=== PATIENT | female | born 1980 | race Caucasian/White ===

== ENCOUNTER 2020-09-24 16:00 | Outpatient (RCR) | payer OTHER, SELFPAY ==
[2020-09-16 11:07] VITALS: BP 141/88; PULSE 113
--- NOTE | 2020-09-16 12:32 | MHC.PT.EP ---
[facility] [place] Office [place] Office [place] Office [address] Pacheco Pardo [address] [phone] F: [phone] F: [phone] F: [phone] F: [phone] Physical Therapy Plan of Care Date of Evaluation: 09/16/20 Date of Surgery: NA Diagnosis: Benign paroxysmal vertigo, bilateral vestibular disorder Assessment: 39 year female referred for Benign paroxysmal vertigo, bilateral vestibular disorder . She reports of having symptoms of vertigo for the last 23 years. She reports of having symptoms of room spinning dizziness every time she rolls, sit to supine. looking up and down and bending over. Her symptoms last for a few seconds. She has occasional nausea as well. Examination reveals smooth pursuit, saccades- WNL, VBI - negative and positive for PC BPPV in R and [facility]. Balance was not tested today. Pt was very anxious and nervous therefore she was assessed directly for BPPV. Pt lives with her who has been helping her with ADLS requiring her to bend- wearing her shoes, socks and pants. 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 She is a good candidate for PT based on age, goals, physical impairments and functional limitations. She would benefit from PT for vestibular rehab. Frequency and Duration: The patient will be seen 2/week for 5 weeks. Short Term Goals: 1. Patient to be educated on symptoms and indications to return to therapy when needed in 4 weeks. 2. Pt will be negative for nystagmus or reports of vertigo in all diagnostic positions bilaterally to resolution of BPPV in 4 weeks. Reporting Process Consultant Goals: 1. Patient to be able to functionally move in all planes and directions without provocation of dizziness to show return to PLOF in 6 weeks. Treatment Plan: Modalities to reduce pain, spasms and effusion. Manual therapy to restore motion and function. Therapeutic exercise to improve strength and flexibility. Neuromuscular re-education for posture and balance. Therapeutic activities to return to functional activities of daily living. Electronically signed by: Tonya Holguin DPT Please sign and return to therapist. Thank you for your referral.
--- NOTE | 2020-10-29 08:21 | MHC.PT.DC ---
[facility] [place] Office [place] Office [place] Office [address] Pacheco Pardo [address] [phone] F: [phone] F: [phone] F: [phone] F: [phone] Physical Therapy Discharge Report Diagnosis: Benign paroxysmal vertigo, bilateral vestibular disorder Date of Surgery: NA Date of Evaluation: 09/16/20 Date of Discharge: 10/29/20 Treatments to Date: 2 Cancellations to Date: 0 No Shows to Date: 0 Discharge Status: Achieved Goals Improved Function Discharge Summary: Pt was negative for BPPV on 09/24/20. Her balance was WNL as well. Pt was advised to return to therapy if her symptoms returned within a month. Pt however has been asymptomatic for a month. She was therefore d/c from therapy Electronically signed by: Tonya Holguin DPT Please sign and return to therapist. Thank you for your referral.
== END 2020-10-29 08:22 | disposition other institution (70) ==
LOC: HO.PT 16:00
PROVIDERS: Visit Provider Physician Assistant
DX: H81.13 Benign paroxysmal vertigo, bilateral (principal)
CPT/HCPCS: 95992; 97112; 97161

== ENCOUNTER 2021-02-02 14:26 | Outpatient (REF) | payer OTHER, SELFPAY ==
--- NOTE | ~2021-02-02 | XR_ITS ---
EXAMINATION: XR ABDOMEN KUB CLINICAL INDICATION: Abdominal pain COMPARISON: None TECHNIQUE: AP view of the abdomen. FINDINGS: There are no dilated loops of bowel to suggest obstruction. There is no evidence of free air. There is an IUD in the pelvis. There is a right pelvic calcification probably representing a calcified phlebolith. Bony structures are unremarkable. XR/XR KUB IMPRESSION: No acute findings.
== END 2021-02-02 14:27 | disposition home or self-care (01) ==
LOC: HO.XRAY 14:26
PROVIDERS: PCP Physician Assistant; Visit Provider Physician Assistant
DX: R10.9 Unspecified abdominal pain (principal); Z97.5 Presence of (intrauterine) contraceptive device
CPT/HCPCS: 74018

== ENCOUNTER 2021-02-12 11:08 | Outpatient (REF) | payer OTHER, SELFPAY ==
--- NOTE | ~2021-02-12 | US_ITS ---
EXAMINATION: US RETROPERITONEAL LIMITED (RENAL ONLY) CLINICAL INFORMATION: Unspecified abdominal pain. COMPARISON: KUB 02/02/2021 TECHNIQUE: Real-time imaging of the kidneys. FINDINGS: RIGHT KIDNEY: 11.7 x 5.0 x 4.5 cm (SAG x AP x TRV). The kidney is normal in size, contour, and echogenicity. Renal cortical thickness is normal. No calculi or focal parenchymal lesions. No hydronephrosis. LEFT KIDNEY: 11.6 x 6.0 x 5.3 cm (SAG x AP x TRV). The kidney is normal in size, contour, and echogenicity. Renal cortical thickness is normal. There is a 9 x 7 x 10 mm echogenic lesion in the lower pole questionable for an angiomyolipoma. No renal calculi or hydronephrosis. US/US renal LT IMPRESSION: 9 x 7 x 10 mm echogenic lesion in the lower pole of the left kidney questionable for an angiomyolipoma. Follow-up CT or MRI the kidneys recommended..
== END 2021-02-12 11:09 | disposition home or self-care (01) ==
LOC: HO.US 11:08
PROVIDERS: Visit Provider Physician Assistant
DX: R10.9 Unspecified abdominal pain (principal)
CPT/HCPCS: 76775

== ENCOUNTER 2021-04-08 09:43 | Outpatient (REF) | payer OTHER, SELFPAY ==
--- NOTE | ~2021-04-08 | CT_ITS ---
EXAMINATION: CT ABDOMEN WITHOUT CONTRAST CLINICAL INFORMATION: Follow-up left renal lesion seen on ultrasound COMPARISON: Renal ultrasound January 2021 TECHNIQUE: Contiguous axial thin section helical images of the abdomen were performed without contrast. The data set was reformatted in the coronal and sagittal planes and reviewed on an independent workstation. This CT examination was performed using dose optimization techniques as appropriate, variously including the following: *Automated exposure control *Adjustment of mA and/or kV according to patient size (this includes techniques or standardized protocols for targeted exams where dose is matched to indication/reason for exam; i.e. extremities or head) *Use of iterative reconstruction technique DLP: 338 mGy-cm FINDINGS: LUNG BASES: Unremarkable LIVER, GALLBLADDER, BILIARY TREE: Unremarkable PANCREAS: Unremarkable SPLEEN: Unremarkable ADRENAL GLANDS AND KIDNEYS: The adrenal glands are normal appearing. There is a 3 x 6 mm low-attenuation lesion in the anterior mid to lower pole of the left kidney. Hounsfield units are negative suggestive of a fatty lesion. This likely represents a benign angiomyolipoma. The right kidney is unremarkable. BOWEL LOOPS: Unremarkable LYMPH NODES: Unremarkable VASCULAR: Unremarkable. BONES: Unremarkable CT/CT abdomen wo con IMPRESSION: 3 x 6 mm fatty lesion in the left kidney probably representing a benign angiomyolipoma. This corresponds to abnormality seen on ultrasound.
== END 2021-04-08 09:44 | disposition home or self-care (01) ==
LOC: HO.CT 09:43
PROVIDERS: PCP Physician Assistant; Visit Provider Physician Assistant
DX: N28.89 Other specified disorders of kidney and ureter (principal); Z80.51 Family history of malignant neoplasm of kidney
CPT/HCPCS: 74150

== ENCOUNTER → 2021-05-21 12:54 | Outpatient (BNVA) | payer OTHER, SELFPAY | PROVIDERS: PCP Physician Assistant; Visit Provider Urology | DX: D17.71 Benign lipomatous neoplasm of kidney (principal) | CPT/HCPCS: 99202 ==

== ENCOUNTER 2022-01-20 09:41 | Outpatient (REF) | payer OTHER, SELFPAY ==
--- NOTE | ~2022-01-20 | MM_ITS ---
EXAMINATION: MM SCREENING DIGITAL BREAST TOMOSYNTHESIS, BILATERAL CLINICAL INFORMATION: Screening. Asymptomatic. The lifetime risk of breast cancer based on the Tyrer-Cuzick Model is 15.9%. COMPARISON: Mammography: March 30, 2018 TECHNIQUE: Digital breast tomosynthesis is performed in both the craniocaudal and mediolateral oblique views along with computer-aided detection (CAD). Synthesized 2D images are generated from the tomosynthesis. FINDINGS: The breasts are heterogeneously dense, which may obscure small masses (ACR BI-RADS breast composition Category c). There are no significant masses, abnormal calcifications, or other abnormalities. MM/MM tomosynthesis screening BI IMPRESSION: There are no significant changes from prior study. ASSESSMENT: BI-RADS 1: Negative RECOMMENDATION: Routine annual mammography screening. This patient's information was entered into a reminder system with a target due date for their next mammogram.
== END 2022-01-20 09:42 | disposition home or self-care (01) ==
LOC: HO.MAMMO 09:41
PROVIDERS: PCP Physician Assistant; Visit Provider Physician Assistant
DX: Z12.31 Encounter for screening mammogram for malignant neoplasm of breast (principal)
CPT/HCPCS: 77063; 77067

== ENCOUNTER 2022-04-16 07:53 | Outpatient (REF) | payer OTHER, SELFPAY ==
--- NOTE | ~2022-04-16 | US_ITS ---
EXAMINATION: US RETROPERITONEAL LIMITED (RENAL ONLY) CLINICAL INFORMATION: Benign lipomatous neoplasm of kidney. COMPARISON: CT abdomen 04/08/2021. Renal ultrasound 02/12/2021. X-ray KUB 02/02/2021. TECHNIQUE: Real-time imaging of the kidneys. FINDINGS: RIGHT KIDNEY: 11.3 x 5.8 x 5.8 cm (SAG x AP x TRV). The kidney is normal in size, contour, and echogenicity. Renal cortical thickness is normal. No calculi or focal parenchymal lesions. No hydronephrosis. LEFT KIDNEY: 12.0 x 5.5 x 5.5 cm (SAG x AP x TRV). The kidney is normal in size, contour, and echogenicity. Renal cortical thickness is normal. No calculi or focal parenchymal lesions. No hydronephrosis. At the lower pole, a 9 x 8 x 7 mm hyperechoic, circumscribed lesion is redemonstrated, consistent with a previously demonstrated benign angiomyolipoma. US/US renal BI IMPRESSION: A previously described small left renal benign angiomyolipoma is redemonstrated, with current dimensions as detailed above..
== END 2022-04-16 07:54 | disposition home or self-care (01) ==
LOC: HO.US 07:53
PROVIDERS: Visit Provider Urology
DX: D17.71 Benign lipomatous neoplasm of kidney (principal)
CPT/HCPCS: 76775

== ENCOUNTER 2022-05-21 10:25 | Outpatient (AMB) | payer OTHER, SELFPAY ==
--- NOTE | 2022-05-20 11:40 | MHC.OFFVIS ---
Intake Intake Visit Reasons: 1Y US (SET) Intake Note: Patient is present for ultrasound follow up Reports no medication changes Accompanied by: Self / Same As Patient Allergies lisinopril Adverse Reaction (Mild, Verified 05/25/23 11:01) Cough HPI HPI Comments History of Present Illness Details Clementine is a pleasant female. She is seen for the following urologic conditions - angiomyolipoma Follow-up imaging stable 12 month repeat Angiomyolipoma Discussed natural history Imaging - 04/22 CT scan 6 mm left angiomyolipoma Plan for surveillance imaging in 12 months [facility] Medical History Anemia DMII (diabetes mellitus, type 2) Irritable bowel syndrome Obesity (BMI 30-39.9) Vitamin D deficiency Surgical History No pertinent past surgical history Family History Father No problems noted. 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 Cognitive needs: No Hearing needs: No Vision needs: Yes (Pt wears glasses) Review of Systems Const Denies chills and Denies fever(s) Card Reports no additional complaints and Denies syncope Resp Denies cough GI Denies abdominal pain and Denies heartburn Reports as per HPI and Denies change in libido Neuro Denies syncope Psych Denies change in libido Endo Denies change in libido Physical Exam Const General: cooperative, healthy appearing, comfortable and no acute distress Orientation/consciousness: patient oriented x3 HEENT Face and sinus: Yes normal facial exam Mouth: moist mucous membranes Neck Neck: Yes normal visual inspection, Yes full ROM and Yes trachea midline Chest Chest palpation & inspection: normal inspection of the chest Resp Effort & Inspection: normal respiratory effort, able to speak in complete sentences and no respiratory distress GI Inspection: Yes normal to inspection Back/Spine/Pelvis Cervical Spine: normal cervical lordosis Thoracic/Lumbar Spine: thoracic and lumbar spine normal to inspection Skin General skin exam: no rashes or lesions noted Neuro General: patient oriented x3, gait normal, tone normal and moves all extremities Extrem General: Yes normal to inspection and Yes capillary refill normal Assessment & Plan Assessment & Plan (1) Angiomyolipoma of kidney: Code(s): D1. - Benign lipomatous neoplasm of kidney Plan 12 month follow-up imaging Orders: Orders US renal BI 1 Year - Benign lipomatous neoplasm of kidney Patient Instructions: Imaging studies, laboratory and physical exam results were discussed and reviewed in detail. No major barriers to patient understanding were identified. An opportunity to ask questions regarding the treatment plan was provided. All questions were answered. The patient expressed understanding and agreement with the above treatment plan. The patient is aware they should contact our office by phone for worsening of their current condition or the appearance of new urologic symptoms. Compliance is encouraged with any medications and followup testing that is ordered. It is a privilege to participate in the urologic care of your patient. If you have any questions or concerns regarding treatment for the above conditions, or other urologic issues, please do not hesitate to contact me. The office telephone contact is [phone]. This note is constructed using voice recognition software. While every effort has been made to ensure accuracy education research analyst errors may have been included. Yours sincerely, Dr Marino Sexton MD, [facility] - Urology Providers of Expert, Compassionate Care for the Genitourinary System Coding Level of Care Code Est Pt Level 4 (15775) Diagnoses Angiomyolipoma of kidney D1
== END 2022-05-21 12:09 | disposition home or self-care (01) ==
LOC: HO.HUSH 10:25
PROVIDERS: PCP Physician Assistant; Visit Provider Urology
DX: D17.71 Benign lipomatous neoplasm of kidney (principal)
CPT/HCPCS: 99499

== ENCOUNTER 2022-09-20 09:51 | Outpatient (REF) | payer OTHER, SELFPAY ==
[2022-09-20 10:31] LABS: Hematocrit 42.1 % (37.0-47.0); Hemoglobin 13.4 g/dl (12.0-16.0); Mean Corpuscular HGB Conc 31.8 g/dl (31.0-35.0); Mean Corpuscular Hemoglobin 30.7 pg (27.0-33.0); Mean Corpuscular Volume 96.3 fL (80.0-98.0); Platelet Count 313 X10*3/uL (160-400); Red Blood Count 4.37 X10*6/uL (4.20-5.50); Red Cell Distribution Width 13.1 % (11.0-16.0); White Blood Count 6.3 X10*3/uL (4.8-10.8)
[2022-09-20 10:37] LABS: Estimated Average Glucose 146 mg/dL; Hemoglobin A1c % 6.7 %
[2022-09-20 11:17] LABS: Alanine Aminotransferase 19 U/L (0-31); Albumin Level 4.2 g/dL (3.5-5.0); Alkaline Phosphatase 44 U/L (39-117); Anion Gap 12 (12-20); Aspartate Amino Transferase 17 U/L (5-31); Bilirubin Total 0.4 mg/dL (0.0-1.0); Blood Urea Nitrogen 11 mg/dL (9-16); Calcium 9.2 mg/dL (8.4-10.2); Carbon Dioxide 28 mmol/L (22-29); Chloride 104 mmol/L (96-108); Cholesterol 185 mg/dL; Estimated Glomerular Filt Rate > 60; Glucose Fasting 121 mg/dL (60-99); HDL Cholesterol 53 mg/dL; LDL Cholesterol Calculated 111 mg/dl; Potassium 4.2 mmol/L (3.3-5.1); Prostate Specific Antigen Scr < 0.10 ng/mL; Sodium 140 mmol/L (135-145); TSH reflex Free T4 1.54 uIU/mL (0.32-4.0); Triglycerides 108 mg/dL
== END 2022-09-20 09:52 | disposition home or self-care (01) ==
LOC: HO.LAB 09:51
PROVIDERS: PCP Physician Assistant; Visit Provider Physician Assistant
DX: Z12.5 Encounter for screening for malignant neoplasm of prostate (principal); E11.65 Type 2 diabetes mellitus with hyperglycemia; I10 Essential (primary) hypertension
CPT/HCPCS: 36415; 80053; 80061; 83036; 84153; 84443; 85027

== ENCOUNTER 2023-02-18 11:29 | Outpatient (REF) | payer OTHER, SELFPAY ==
--- NOTE | ~2023-02-18 | MM_ITS ---
EXAMINATION: MM SCREENING DIGITAL BREAST TOMOSYNTHESIS, BILATERAL CLINICAL INFORMATION: Screening. Asymptomatic. The lifetime risk of breast cancer based on the Tyrer-Cuzick Model is 17%. COMPARISON: Mammography: 01/20/2022; outside exam 03/30/2018 ([facility]) TECHNIQUE: Digital breast tomosynthesis is performed in both the craniocaudal and mediolateral oblique views along with computer-aided detection (CAD). Synthesized 2D images are generated from the tomosynthesis. FINDINGS: The breasts are heterogeneously dense, which may obscure small masses (ACR BI-RADS breast composition Category c). Breast tissue composition borders on average fibroglandular. There are scattered minor asymmetries similar to prior studies. No developing density or architectural abnormality. There are no significant masses, abnormal calcifications, or other abnormalities. The axilla and skin contours are unremarkable. MM/MM tomosynthesis screening BI IMPRESSION: No mammographic evidence of malignancy. ASSESSMENT: BI-RADS 2: Benign RECOMMENDATION: Routine annual mammography screening. This patient's information was entered into a reminder system with a target due date for their next mammogram.
== END 2023-02-18 11:30 | disposition home or self-care (01) ==
LOC: HO.MAMMO 11:29
PROVIDERS: PCP Physician Assistant; Visit Provider Physician Assistant
DX: Z12.31 Encounter for screening mammogram for malignant neoplasm of breast (principal)
CPT/HCPCS: 77063; 77067

== ENCOUNTER 2023-05-09 10:57 | Outpatient (REF) | payer OTHER, SELFPAY ==
--- NOTE | ~2023-05-09 | US_ITS ---
EXAMINATION: US RETROPERITONEAL LIMITED (RENAL ONLY) CLINICAL INFORMATION: Benign lipomatous neoplasm of kidney. COMPARISON: Renal ultrasound 04/16/2022 and 02/12/2021. CT abdomen 04/08/2021. X-ray abdomen KUB 02/02/2021. TECHNIQUE: Real-time imaging of the kidneys. FINDINGS: RIGHT KIDNEY: 11.4 x 6.0 x 4.8 cm (SAG x AP x TRV). The kidney is normal in size, contour, and echogenicity. Renal cortical thickness is normal. No calculi or focal parenchymal lesions. No hydronephrosis. LEFT KIDNEY: 11.0 x 6.5 x 5.6 cm (SAG x AP x TRV). The kidney is normal in size, contour, and echogenicity. Renal cortical thickness is normal. No renal calculi or hydronephrosis. A 1 cm echogenic midpole renal lesion without internal vascularity which may reflect a small angiomyolipoma, previously 0.9 cm. US/US renal BI IMPRESSION: A 1 cm echogenic left renal lesion without internal vascularity which may reflect a small angiomyolipoma, previously 0.9 cm.
== END 2023-05-09 10:58 | disposition home or self-care (01) ==
LOC: HO.US 10:57
PROVIDERS: PCP Physician Assistant; Visit Provider Urology
DX: D17.71 Benign lipomatous neoplasm of kidney (principal)
CPT/HCPCS: 76775

== ENCOUNTER 2023-05-25 10:32 | Outpatient (AMB) | payer OTHER, SELFPAY ==
--- NOTE | 2023-05-25 11:00 | A.OFFVIS_ITS ---
Intake Intake Visit Reasons: 1Y US(set) Intake Note: Patient is present for Follow Up US Urology Med: None Antibiotic Allergy: None Blood Thinner: None Pharmacy: [facility] Allergies lisinopril Adverse Reaction (Mild, Verified 05/25/23 11:01) Cough HPI HPI Comments History of Present Illness Details Clementine is a pleasant female. She is seen for the following urologic conditions - angiomyolipoma Stable on imaging 2 year follow-up Angiomyolipoma Here for initial evaluation of incidentally detected renal mass Discussed natural history Imaging - 04/22 CT scan 6 mm left angiomyolipoma - 05/25 renal ultrasound small 9 mm left angiomyolipoma Plan for surveillance imaging in 24 months [facility] Medical History Anemia DMII (diabetes mellitus, type 2) Irritable bowel syndrome Obesity (BMI 30-39.9) Vitamin D deficiency Surgical History No pertinent past surgical history Family History Father No problems noted. 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 Cognitive needs: No Hearing needs: No Vision needs: Yes (Pt wears glasses) Review of Systems Const Denies chills and Denies fever(s) Card Reports no additional complaints and Denies syncope Resp Denies cough GI Denies abdominal pain and Denies heartburn Reports as per HPI and Denies change in libido Neuro Denies syncope Psych Denies change in libido Endo Denies change in libido Physical Exam Const General: cooperative, healthy appearing, comfortable and no acute distress Orientation/consciousness: patient oriented x3 HEENT Face and sinus: Yes normal facial exam Mouth: moist mucous membranes Neck Neck: Yes normal visual inspection, Yes full ROM and Yes trachea midline Chest Chest palpation & inspection: normal inspection of the chest Resp Effort & Inspection: normal respiratory effort, able to speak in complete sentences and no respiratory distress GI Inspection: Yes normal to inspection Back/Spine/Pelvis Cervical Spine: normal cervical lordosis Thoracic/Lumbar Spine: thoracic and lumbar spine normal to inspection Skin General skin exam: no rashes or lesions noted Neuro General: patient oriented x3, gait normal, tone normal and moves all extremities Extrem General: Yes normal to inspection and Yes capillary refill normal Assessment & Plan Assessment & Plan (1) Angiomyolipoma of kidney: Code(s): D17.71 - Benign lipomatous neoplasm of kidney Plan Two month follow-up Patient Instructions: Imaging studies, laboratory and physical exam results were discussed and reviewed in detail. No major barriers to patient understanding were identified. An opportunity to ask questions regarding the treatment plan was provided. All questions were answered. The patient expressed understanding and agreement with the above treatment plan. The patient is aware they should contact our office by phone for worsening of their current condition or the appearance of new urologic symptoms. Compliance is encouraged with any medications and followup testing that is ordered. It is a privilege to participate in the urologic care of your patient. If you have any questions or concerns regarding treatment for the above conditions, or other urologic issues, please do not hesitate to contact me. The office telephone contact is [phone]. This note is constructed using voice recognition software. While every effort has been made to ensure accuracy tester compressed gases errors may have been included. Yours sincerely, Dr Marino Sexton MD, [facility] - Urology Providers of Expert, Compassionate Care for the Genitourinary System Coding Level of Care Code Est Pt Level 4 (85638) Diagnoses Angiomyolipoma of kidney D17.71
== END 2023-05-25 11:24 | disposition home or self-care (01) ==
PROVIDERS: PCP Physician Assistant; Visit Provider Urology
DX: D17.71 Benign lipomatous neoplasm of kidney (principal)
CPT/HCPCS: 99214

== ENCOUNTER → 2023-05-25 10:32 | Outpatient (BNVA) | payer OTHER, SELFPAY | PROVIDERS: Visit Provider Urology | DX: D17.71 Benign lipomatous neoplasm of kidney (principal) | CPT/HCPCS: 99212 ==

== ENCOUNTER 2024-01-10 12:29 | Outpatient (REF) | payer OTHER, SELFPAY ==
[2024-01-10 12:57] LABS: Hematocrit 41.3 % (37.0-47.0); Hemoglobin 13.4 g/dl (12.0-16.0); Mean Corpuscular HGB Conc 32.4 g/dl (31.0-35.0); Mean Corpuscular Hemoglobin 31.5 pg (27.0-33.0); Mean Corpuscular Volume 97.2 fL (80.0-98.0); Mean Platelet Volume 11.2 fL (9.4-12.3); Platelet Count 329 X10*3/uL (160-400); Red Blood Count 4.25 X10*6/uL (4.20-5.50); Red Cell Distribution Width 12.8 % (11.0-16.0)
[2024-01-10 13:05] LABS: Estimated Average Glucose 169 mg/dL; Hemoglobin A1c % 7.5 % (<6.0)
[2024-01-10 13:29] LABS: Alanine Aminotransferase 21 U/L (0-31); Albumin Level 4.2 g/dL (3.5-5.0); Alkaline Phosphatase 39 U/L (39-117); Anion Gap 13 (12-20); Aspartate Amino Transferase 18 U/L (5-31); Bilirubin Total 0.4 mg/dL (0.0-1.0); Blood Urea Nitrogen 13 mg/dL (9-16); Calcium 9.5 mg/dL (8.4-10.2); Carbon Dioxide 27 mmol/L (22-29); Chloride 104 mmol/L (96-108); Cholesterol 149 mg/dL (<200); Estimated Glomerular Filt Rate > 60; Glucose Fasting 108 mg/dL (60-99); HDL Cholesterol 59 mg/dL (>40); LDL Cholesterol Calculated 71 mg/dL (<100); Potassium 4.3 mmol/L (3.3-5.1); Sodium 140 mmol/L (135-145); Total Protein 7.7 g/dL (6.5-8.0); Triglycerides 96 mg/dL (<150)
[2024-01-10 13:46] LABS: TSH reflex Free T4 0.91 uIU/mL (0.32-4.0)
== END 2024-01-10 12:30 | disposition home or self-care (01) ==
LOC: HO.LAB 12:29
PROVIDERS: PCP Physician Assistant; Visit Provider Physician Assistant
DX: E11.65 Type 2 diabetes mellitus with hyperglycemia (principal); I10 Essential (primary) hypertension
CPT/HCPCS: 36415; 80053; 80061; 83036; 84443; 85027

== ENCOUNTER 2024-01-10 13:56 | Outpatient (AMB) | payer OTHER, SELFPAY ==
--- NOTE | 2024-01-10 14:02 | A.OFFPC_ITS ---
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 Accompanied by: Self / Same As Patient Allergies lisinopril Adverse Reaction (Mild, Verified 01/10/24 14:30) Cough Medication List - Last Reconciled 01/10/24 by Irving Ham PA-C blood sugar diagnostic (FreeStyle Lite Strips) As directed empagliflozin (Jardiance) 25 mg PO DAILY lancets (FreeStyle Lancets) As directed latanoprost 0.005% 1 drp ophthalmic (eye) BEDTIME metformin 1,000 mg PO BID 90 days omeprazole 40 mg PO DAILY 90 days simvastatin 5 mg PO DAILY 90 days valsartan 80 mg PO DAILY 90 days Tobacco use date assessed: 01/10/24 Dental Screening Dental Screen Date: 01/10/24 Did you have a dental visit in the last 12 months?: Yes Did you have a dental problem in the last 6 months where you did not have access to dental care?: No Was dental information given to patient?: Patient has dentist HPI Diabetes follow-up HPI Details Patient is a 43 y/o F here today for a follow-up visit ? Patient has a past medical history significant for type 2 diabetes, GERD hypertension. .. DMII:? Continues on Jardiance and metformin. She reports she has been out of Jardiance over the last 2 months due to insurance coverage. She finally has insurance coverage for Jardiance and restarted the medication recently.? Patient's most recent A1c is 7.5 from 6.7..? She admits to not being to physically active due to her busy work. She is interested in starting GLP 1 for diabetic control and added benefit of weight loss. Will start Ozempic 0.25 .. Hypertension:? Blood pressures have been stable on current dose of amlodipine and valsartan. Otherwise denies any chest pain, shortness for breath or headaches. Laboratory Tests 09/20/22 01/10/24 10:02 12:42 Fasting Glucose 121 H 108 H Hemoglobin A1c % 6.7 7.5 H LDL Cholesterol, C alc 111 71 PFSH Medical History Vitamin D deficiency Obesity (BMI 30-39.9) Anemia Irritable bowel syndrome DMII (diabetes mellitus, type 2) Surgical History No pertinent past surgical history Family History Father No problems noted. 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 1. Little interest or pleasure in doing things: not at all 2. Feeling down, depressed, or hopeless: not at all 3. Trouble falling or staying asleep, or sleeping too much: not at all 4. Feeling tired or having little energy: not at all 5. Poor appetite or overeating: not at all 6. Feeling bad about yourself - or that you are a failure or have let yourself or your family down: not at all 7. Trouble concentrating on things, such as reading the newspaper or watching television: not at all 8. Moving or speaking so slowly that other people could have noticed. Or the opposite - being so fidgety or restless that you have been moving around a lot more than usual: not at all 9. Thoughts that you would be better off or of hurting yourself in some way: not at all Total score: 0 Depression Screening Interpretation: Negative Depression Screening Done: Yes 28289 - PHQ-9 Billing: Yes Source: Developed by Drs. Parmjit Mathis, Elba Joseph, Víctor Delgadillo and colleagues, with an educational mckenna from [employer]. Thrive Questionnaire Date Thrive assessed: 01/10/24 I am a: Patient What is your living situation today?: I have a steady place to live Within the past 12 months, did the food you bought not last and you didn't have the money to get more?: Never true Within the past 12 months, did you worry whether your food would run out before you got money to buy more?: Never true Do you have trouble paying for medicines?: No Do you have trouble getting transportation to medical appointments?: No Do you have trouble paying your heating and electricity bill?: No Do you have trouble taking care of your child, family member or friend?: No Do you have trouble with day-to-day activities such as bathing, preparing meals, shopping, managing finances, etc.?: No Are you currently unemployed and looking for a job?: No Are you interested in more education?: No Please select the resources that you would like help with: None Currently or been in a relationship where the following occur: no concerns reported THRIVE Score: 0 AUDIT C Alcohol Use Questionnaire (AUDIT-C) 1. How often do you have a drink containing alcohol?: Monthly or less 2. How many drinks containing alcohol do you have on a typical day when you are drinking?: 1 or 2 3. How often do you have six or more drinks on one occasion?: Never Total Score: 1 GRECIA-7 AMB Questionnaire GRECIA-7 Date GRECIA - 7 assessed: 01/10/24 Feeling nervous, anxious, or on edge: 0 = Not at all Not being able to stop or control worryin = Not at all Worrying too much about different things: 0 = Not at all Trouble relaxin = Not at all Being so restless that it is hard to sit still: 0 = Not at all Becoming easily annoyed or irritable: 0 = Not at all Feeling afraid as if something awful might happen: 0 = Not at all Total GRECIA-7 score (0-4 normal; 5-9 mild; 10-14 moderate; 15-21 severe): 0 Source: Developed by Drs. Parmjit Mathis, Elba Joseph, Víctor Delgadillo and colleagues, with an educational mckenna from [employer]. GRECIA-7 Assessment Billing GRECIA-7 Assessment Tool: GRECIA-7 Assessment 20669 Review of Systems Const Denies headache(s) Eyes Denies loss of vision ENT Denies vertigo, Denies dizziness, Denies headache(s) and Denies sore throat Card Denies chest pain, Denies leg edema and Denies lightheadedness Resp Denies cough, Denies hemoptysis and Denies wheezing GI Denies abdominal pain, Denies melena, Denies constipation, Denies diarrhea and Denies vomiting Denies urinary frequency, Denies dysuria and Denies urinary urgency Musc Denies arthralgias, Denies joint swelling, Denies numbness and Denies tingling Neuro Denies Abnormal speech present, Denies behavioral changes, Denies vertigo, Denies dizziness, Denies headache(s), Denies loss of vision, Denies memory loss, Denies numbness and Denies tingling Psych Denies anxiety, Denies behavioral changes, Denies depression, Denies memory loss and Denies panic attacks Jamey/Lymph Denies easy bleeding and Denies easy bruising Aller/Immun Denies wheezing Physical exam (Primary Care) Vital Signs: Last Vital Signs Pulse 112 H 01/10/24 14:20 BP 118/80 01/10/24 14:20 Pulse Ox 98 01/10/24 14:20 Oxygen Delivery Method Room Air 01/10/24 14:20 BMI result Body Mass Index 32.2 BMI Assessment/Plan discussion: High Tobacco/Smoking Status: Tobacco use Status Tobacco use date assessed 01/10/24 01/10/24 14:26 Patient Tobacco Use Status Never used Tobacco 01/10/24 14:02 e-Cigarette/Vaping Use Never Used 01/10/24 14:02 PHQ-9: PHQ-9 Score PHQ-9: Total score 0 01/10/24 14:32 Depression Screening Interpretation: Negative Thrive Assessment: Date of Thrive Assessment Date Thrive assessed 01/10/24 01/10/24 14:26 Currently or been in a relationship where the following occur: no concerns reported Const Other: OBESE General: healthy appearing, no acute distress, alert and awake Nutritional Appearance: well nourished Orientation/consciousness: oriented to person, oriented to place and oriented to time HENMT Ears: TM's normal bilaterally General nose exam: Normal nasal mucous membranes and turbinates present Eyes Conjunctivae: conjunctivae normal Sclerae: sclerae normal Pupils: Equal, round and reactive pupils present Neck Neck: Yes no lymphadenopathy and Yes no JVD Thyroid: Thyroid normal Carotids: no bruits Resp Effort & Inspection: normal respiratory effort and not tachypneic Auscultation: no crackles, no rales, no rhonchi and no wheezes Cardio Rate: regular rate Rhythm: regular rhythm Heart sounds: no murmurs and normal S1 and S2 GI Palpation (GI): Soft to palpation, nontender, no hepatomegaly and no splen omegaly Auscultation: normal bowel sounds Skin General skin exam: no rashes or lesions noted and dry skin Neuro General: oriented to person, oriented to place and oriented to time Cranial nerves: Yes Equal, round and reactive pupils present Speech: No Abnormal speech present Gait exam (Neuro): Normal gait present Motor exam (neuro): no tremor noted Extrem Right upper extremity: full ROM Left upper extremity: full ROM Right lower extremity: full ROM; no edema Left lower extremity: full ROM; no edema Psych Mental Status: mental status grossly normal Speech and movement: Normal speech and movement present Affect: normal affect Attitude: cooperative Thought process: Normal thought process present Assessment and Plan Assessment & Plan (1) HTN (hypertension): Code(s): I10 - Essential (primary) hypertension Qualifiers: Hypertension type: essential hypertension Qualified Code(s): I10 - Essential (primary) hypertension Plan: Patient's blood pressure acceptable today in office. Will continue her current dose valsartan therapy. Goal blood pressure to be below 140/90 (2) Type 2 diabetes mellitus with hyperglycemia: Code(s): E11.65 - Type 2 diabetes mellitus with hyperglycemia Qualifiers: Diabetes mellitus [facility] insulin use: without [facility] use Qualified Code(s): E11.65 - Type 2 diabetes mellitus with hyperglycemia Plan: Patient's type 2 diabetes is suboptimally controlled, reports she has been out a Jardiance over last 2 months. Recently restarted Jardiance. She is interested in some weight loss thus will start GLP 1 for added benefit of weight loss. Most recent A1c is 7.5.. Goal A1c to be below 7.0 (3) BPPV (benign paroxysmal positional vertigo): Code(s): H81.10 - Benign paroxysmal vertigo, unspecified ear Qualifiers: Laterality: bilateral Qualified Code(s): H81.13 - Benign paroxysmal vertigo, bilateral Plan: Patient continues to suffer with benign positional vertigo over the last 25 years. Has done visit related therapy and try medication with decent relief though continues to be recurring as it relates to head movements and lying down. She reports she is able to manage her vertigo on most occasions. (4) Hyperlipidemia LDL goal <100: Code(s): E78.5 - Hyperlipidemia, unspecified Plan: Patient's most recent lipid panel showing good control over total cholesterol and LDL. Will continue low-dose statin therapy. Goal LDL to be below 100. Orders: Orders Comprehensive [place]. Panel Fast 4 Months E11.65 - Type 2 diabetes mellitus with hyperglycemia Hemoglobin A1c 4 Months E11.65 - Type 2 diabetes mellitus with hyperglycemia Medications: New semaglutide (Ozempic) 0.5 mg (0.736 mL) subcut QWEEK 4 weeks 3 mL 3RF E11.65 - Type 2 diabetes mellitus with hyperglycemia Refilled empagliflozin (Jardiance) 25 mg PO DAILY 90 tabs 1RF E11.65 - Type 2 diabetes mellitus with hyperglycemia Coding Level of Care Code Est Pt Level 4 (08418) Diagnoses Essential hypertension I10 Hypertension type: essential hypertension Type 2 diabetes mellitus with hyperglycemia, without long-term current use of insulin E11.65 Diabetes mellitus [facility] insulin use: without [facility] use Benign paroxysmal positional vertigo due to bilateral vestibular disorder H81.13 Laterality: bilateral Hyperlipidemia LDL goal <100 E78.5 Additional Codes GRECIA-7 Assessment Billing - GRECIA-7 Assessment Tool: GRECIA-7 Assessment 69145 ([id number])
[2024-01-10 14:20] VITALS: BP 118/80; PULSE 112; O2SAT 98; BMI 32.2
== END 2024-01-10 14:56 | disposition home or self-care (01) ==
PROVIDERS: PCP Physician Assistant; Visit Provider Physician Assistant
DX: I10 Essential (primary) hypertension (principal); E11.65 Type 2 diabetes mellitus with hyperglycemia; H81.13 Benign paroxysmal vertigo, bilateral; E78.5 Hyperlipidemia, unspecified
CPT/HCPCS: 99214

== ENCOUNTER 2024-02-20 10:48 | Outpatient (REF) | payer OTHER, SELFPAY | END 2024-02-20 10:49 | disposition home or self-care (01) | LOC: HO.MAMMO 10:48 | PROVIDERS: PCP Physician Assistant; Visit Provider Physician Assistant | DX: Z12.31 Encounter for screening mammogram for malignant neoplasm of breast (principal) | CPT/HCPCS: 77063; 77067 ==

== ENCOUNTER → 2024-02-20 11:00 | Outpatient (BNV) | payer OTHER, SELFPAY | PROVIDERS: PCP Physician Assistant; Visit Provider Radiology Diagnostic Radiology | DX: Z12.31 Encounter for screening mammogram for malignant neoplasm of breast (principal) | CPT/HCPCS: 77063; 77067 ==

== ENCOUNTER 2024-05-09 11:19 | Outpatient (AMB) | payer OTHER, SELFPAY ==
--- NOTE | 2024-05-09 11:35 | A.OFFPC_ITS ---
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 Required: No Accompanied by: Self / Same As Patient Allergies lisinopril Adverse Reaction (Mild, Verified 05/09/24 11:57) Cough Medication List - Last Reconciled 05/09/24 by Irving Ham PA-C blood sugar diagnostic (FreeStyle Lite Strips) As directed empagliflozin (Jardiance) 25 mg PO DAILY lancets (FreeStyle Lancets) As directed latanoprost 0.005% 1 drp ophthalmic (eye) BEDTIME metformin 1,000 mg PO BID 90 days omeprazole 40 mg PO DAILY 90 days semaglutide (Ozempic) 0.5 mg (0.736 mL) subcut QWEEK 4 weeks simvastatin 5 mg PO DAILY 90 days valsartan 80 mg PO DAILY 90 days Tobacco use date assessed: 01/10/24 Dental Screening Dental Screen Date: 01/10/24 HPI weight check up f/u HPI Details Patient is a 43 y/o F here today for a follow-up visit ? Patient has a past medi reggie history significant for type 2 diabetes, GERD hypertension. .. DMII:? A last visit we discussed her weight and her diabetic control. She was willing to start Ozempic 0.5 mg and has lost significant amount of weight since last office visit. Today's A1c has improved to 7.2 from 7.5. She would like to increase her dose of Ozempic to 1 mg as she has felt hunger again and for better glycemic control. .. Hypertension:? Blood pressures have been stable on current dose of amlodipine and valsartan. Otherwise denies any chest pain, shortness for breath or headaches. [facility] Medical History Vitamin D deficiency Obesity (BMI 30-39.9) Anemia Irritable bowel syndrome DMII (diabetes mellitus, type 2) Surgical History No pertinent past surgical history Family History Father No problems noted. 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 Parmjit Mathis, Elba Joseph, Víctor Delgadillo and colleagues, with an educational mckenna from [employer]. Review of Systems Const Denies headache(s) Eyes Denies loss of vision ENT Denies vertigo, Denies dizziness, Denies headache(s) and Denies sore throat Card Denies chest pain, Denies leg edema and Denies lightheadedness Resp Denies cough, Denies hemoptysis and Denies wheezing GI Denies abdominal pain, Denies melena, Denies constipation, Denies diarrhea and Denies vomiting Denies urinary frequency, Denies dysuria and Denies urinary urgency Musc Denies arthralgias, Denies joint swelling, Denies numbness and Denies tingling Neuro Denies Abnormal speech present, Denies behavioral changes, Denies vertigo, Denies dizziness, Denies headache(s), Denies loss of vision, Denies memory loss, Denies numbness and Denies tingling Psych Denies anxiety, Denies behavioral changes, Denies depression, Denies memory loss and Denies panic attacks Jamey/Lymph Denies easy bleeding and Denies easy bruising Aller/Immun Denies wheezing Physical exam (Primary Care) Vital Signs: Last Vital Signs Pulse 97 05/09/24 11:41 BP 122/86 05/09/24 11:41 Pulse Ox 97 05/09/24 11:41 Oxygen Delivery Method Room Air 05/09/24 11:41 BMI result Body Mass Index 30.7 Tobacco/Smoking Status: Tobacco use Status Tobacco use date assessed 01/10/24 05/09/24 11:42 Patient Tobacco Use Status Never used Tobacco 05/09/24 11:42 e-Cigarette/Vaping Use Never Used 05/09/24 11:42 Thrive Assessment: Date of Thrive Assessment Date Thrive assessed 01/10/24 05/09/24 11:42 Const General: healthy appearing, no acute distress, alert and awake Nutritional Appearance: well nourished Orientation/consciousness: oriented to person, oriented to place and oriented to time HENMT Ears: TM's normal bilaterally General nose exam: Normal nasal mucous membranes and turbinates present Eyes Conjunctivae: conjunctivae normal Sclerae: sclerae normal Pupils: Equal, round and reactive pupils present Neck Neck: Yes no lymphadenopathy and Yes no JVD Thyroid: Thyroid normal Carotids: no bruits Resp Effort & Inspection: normal respiratory effort and not tachypneic Auscultation: no crackles, no rales, no rhonchi and no wheezes Cardio Rate: regular rate Rhythm: regular rhythm Heart sounds: no murmurs and normal S1 and S2 GI Palpation (GI): Soft to palpation, nontender, no hepatomegaly and no splenomegaly Auscultation: normal bowel sounds Skin General skin exam: no rashes or lesions noted and dry skin Neuro General: oriented to person, oriented to place and oriented to time Cranial nerves: Yes Equal, round and reactive pupils present Speech: No Abnormal speech present Gait exam (Neuro): Normal gait present Motor exam (neuro): no tremor noted Extrem Right upper extremity: full ROM Left upper extremity: full ROM Right lower extremity: full ROM; no edema Left lower extremity: full ROM; no edema Psych Mental Status: mental status grossly normal Speech and movement: Normal speech and movement present Affect: normal affect Attitude: cooperative Thought process: Normal thought process present Assessment and Plan Assessment & Plan (1) HTN (hypertension): Code(s): I10 - Essential (primary) hypertension Qualifiers: Hypertension type: essential hypertension Qualified Code(s): I10 - Essential (primary) hypertension Plan: Patient's blood pressure acceptable today in office. Will continue her current dose valsartan therapy. 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 She reports no side effects from GLP 1 Will increase her Ozempic dose to 1 mg weekly for better glycemic control and added benefit of additional weight loss. . Goal A1c to be below 7.0 (3) Hyperlipidemia LDL goal <100: Code(s): E78.5 - Hyperlipidemia, unspecified Plan: Patient's most recent lipid panel showing good control over total cholesterol and LDL. Will continue low-dose statin therapy. Goal LDL to be below 100. Orders: Orders AMB Hemoglobin A1c Today E11.65 - Type 2 diabetes mellitus with hyperglycemia Lipid Panel Today E78.5 - Hyperlipidemia, unspecified Microalbumin, Random (w Creat) Today E11.65 - Type 2 diabetes mellitus with hyperglycemia Complete Blood Count no Diff Today E11.65 - Type 2 diabetes mellitus with hyperglycemia Comprehensive [place]. Panel Fast Today E11.65 - Type 2 diabetes mellitus with hyperglycemia Medications: New semaglutide (Ozempic) 1 mg (0.75 mL) subcut QWEEK 4 weeks 3 mL 3RF E11.65 - Type 2 diabetes mellitus with hyperglycemia, E66.9 - Obesity, unspecified Discontinued semaglutide (Ozempic) Discontinued Reason: Doctor's Order 0.5 mg (0.736 mL) subcut QWEEK 4 weeks 3 mL 3RF E11.65 - Type 2 diabetes mellitus with hyperglycemia Patient Instructions: Goal: A1c to be below 7.0, LDL to remain below 100 Barriers: Adherence to physical activity and healthy eating habits Coding Level of Care Code Est Pt Level 4 (79734) Diagnoses Essential hypertension I10 Hypertension type: essential hypertension Type 2 diabetes mellitus with hyperglycemia, without long-term current use of insulin E11.65 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
[2024-05-09 11:41] VITALS: BP 122/86; PULSE 97; O2SAT 97; BMI 30.7
== END 2024-05-09 12:05 | disposition home or self-care (01) ==
PROVIDERS: PCP Physician Assistant; Visit Provider Physician Assistant
DX: I10 Essential (primary) hypertension (principal); E11.65 Type 2 diabetes mellitus with hyperglycemia; E78.5 Hyperlipidemia, unspecified
CPT/HCPCS: 83036; 99214

== ENCOUNTER 2024-05-09 12:10 | Outpatient (REF) | payer OTHER, SELFPAY ==
[2024-05-09 13:38] LABS: Hematocrit 40.6 % (37.0-47.0); Hemoglobin 13.1 g/dl (12.0-16.0); Mean Corpuscular HGB Conc 32.3 g/dl (31.0-35.0); Mean Corpuscular Hemoglobin 30.9 pg (27.0-33.0); Mean Corpuscular Volume 95.8 fL (80.0-98.0); Mean Platelet Volume 11.8 fL (9.4-12.3); Platelet Count 336 X10*3/uL (160-400); Red Blood Count 4.24 X10*6/uL (4.20-5.50); Red Cell Distribution Width 14.7 % (11.0-16.0); White Blood Count 8.3 X10*3/uL (4.8-10.8)
[2024-05-09 14:22] LABS: Alanine Aminotransferase 20 U/L (0-31); Albumin Level 4.2 g/dL (3.5-5.0); Alkaline Phosphatase 47 U/L (39-117); Anion Gap 13 (12-20); Aspartate Amino Transferase 18 U/L (5-31); Bilirubin Total 0.3 mg/dL (0.0-1.0); Blood Urea Nitrogen 12 mg/dL (9-16); Calcium 9.6 mg/dL (8.4-10.2); Carbon Dioxide 26 mmol/L (22-29); Chloride 101 mmol/L (96-108); Cholesterol 156 mg/dL (<200); Estimated Glomerular Filt Rate > 60; Glucose Fasting 110 mg/dL (60-99); HDL Cholesterol 57 mg/dL (>40); LDL Cholesterol Calculated 74 mg/dL (<100); Potassium 4.4 mmol/L (3.3-5.1); Sodium 136 mmol/L (135-145); Total Protein 7.7 g/dL (6.5-8.0); Triglycerides 127 mg/dL (<150)
[2024-05-09 14:33] LABS: Creatinine Urine 55.66 mg/dL
== END 2024-05-09 12:11 | disposition home or self-care (01) ==
LOC: HO.LAB 12:10
PROVIDERS: PCP Physician Assistant; Visit Provider Physician Assistant
DX: E78.5 Hyperlipidemia, unspecified (principal); E11.65 Type 2 diabetes mellitus with hyperglycemia
CPT/HCPCS: 36415; 80053; 80061; 82043; 82570; 85027

== ENCOUNTER 2024-12-19 11:07 | Outpatient (REF) | payer OTHER, SELFPAY ==
[2024-12-19 13:01] LABS: Hematocrit 42.3 % (37.0-47.0); Mean Corpuscular HGB Conc 33.1 g/dl (31.0-35.0); Mean Corpuscular Hemoglobin 31.1 pg (27.0-33.0); Mean Platelet Volume 11.2 fL (9.4-12.3); Platelet Count 337 X10*3/uL (160-400); Red Cell Distribution Width 13.6 % (11.0-16.0)
[2024-12-19 13:08] LABS: Estimated Average Glucose 140 mg/dL; Hemoglobin A1c % 6.5 % (<6.0)
[2024-12-19 14:25] LABS: Alanine Aminotransferase 26 U/L (0-31); Albumin Level 4.4 g/dL (3.5-5.0); Alkaline Phosphatase 39 U/L (39-117); Anion Gap 13 (12-20); Aspartate Amino Transferase 21 U/L (5-31); Bilirubin Total 0.4 mg/dL (0.0-1.0); Blood Urea Nitrogen 12 mg/dL (9-16); Calcium 9.7 mg/dL (8.4-10.2); Carbon Dioxide 26 mmol/L (22-29); Chloride 106 mmol/L (96-108); Cholesterol 158 mg/dL (<200); Estimated Glomerular Filt Rate > 60; Glucose Fasting 108 mg/dL (60-99); HDL Cholesterol 65 mg/dL (>40); LDL Cholesterol Calculated 72 mg/dL (<100); Potassium 4.2 mmol/L (3.3-5.1); Sodium 141 mmol/L (135-145); Total Protein 8.5 g/dL (6.5-8.0); Triglycerides 106 mg/dL (<150)
[2024-12-19 15:29] LABS: Creatinine Urine 82.78 mg/dL; Microalbum/Creatinine Ratio Ur 15.7 ug/mg cr (<30)
[2025-01-03 15:14] LABS: Class Alternaria alternata 0; Class Aspergillus fumigatus 0; Class Bermuda Grass 0; Class Birch 0; Class Cladosporium herbarum 0; Class Cockroach 0; Class Common Ragweed 0; Class Cottonwood 0; Class Derm. pterony 0; Class Dermatophagoides farinae 0; Class Elm 0; Class Maple Box Elder 0; Class Mountain Cedar 0; Class Mouse Urine Protein 0; Class Mugwort 0; Class Oak 0; Class Penicillium crysogenum 0; Class Sycamore 0; Class Timothy Grass 0; Class Walnut Tree 0; Class White Ash 0; Class White Mulberry 0; D001 IgE D pteronyssinus <0.10 kU/L; D002 - IgE D farinae <0.10 kU/L; E072-IgE Mouse Urine <0.10 kU/L; G002 IgE Bermuda Grass <0.10 kU/L; G006 - IgE Timothy Grass <0.10 kU/L; I006-IgE Cockroach, German <0.10 kU/L; M001 IgE Penicillium chrysogen <0.10 kU/L; M002 - IgE Cladosporium herbar <0.10 kU/L; M003 - IgE Aspergillus fumigat <0.10 kU/L; M006 - IgE Alternaria alternat <0.10 kU/L; T001 IgE Maple/Box Elder <0.10 kU/L; T003 IgE Common Silver Birch <0.10 kU/L; T006 - IgE Cedar, Mountain <0.10 kU/L; T007 - IgE Oak, White <0.10 kU/L; T008 IgE Elm, American <0.10 kU/L; T010 - IgE Walnut <0.10 kU/L; T011 - IgE Maple Leaf Sycamore <0.10 kU/L; T014 - IgE Cottonwood <0.10 kU/L; T015 - IgE Ash, White <0.10 kU/L; T070 - IgE White Mulberry <0.10 kU/L; W001 - IgE Ragweed, Short <0.10 kU/L; W006 - IgE Mugwort <0.10 kU/L
== END 2024-12-19 11:08 | disposition home or self-care (01) ==
LOC: HO.LAB 11:07
PROVIDERS: PCP Physician Assistant; Visit Provider Physician Assistant
DX: Z00.00 Encounter for general adult medical examination without abnormal findings (principal); E11.65 Type 2 diabetes mellitus with hyperglycemia; I10 Essential (primary) hypertension; R10.2 Pelvic and perineal pain; J30.81 Allergic rhinitis due to animal (cat) (dog) hair and dander; E78.5 Hyperlipidemia, unspecified; R05.9 Cough, unspecified; Z79.899 Other long term (current) drug therapy
CPT/HCPCS: 36415; 80053; 80061; 82043; 82570; 82785; 83036; 85027; 86003; 96127; 99212

== ENCOUNTER 2024-12-19 11:07 | Outpatient (AMB) | payer OTHER, SELFPAY ==
[2024-12-19 11:27] VITALS: BP 112/86; PULSE 104; O2SAT 96; BMI 29.7
--- NOTE | 2024-12-19 11:27 | A.OFFPC_ITS ---
Vital Signs 3 12/19/24 11:27 Height 5 ft 4 in Weight 173 lb 4 oz BMI 29.7 BP 112/86 Blood Pressure Location Lt brachial Position Sitting Pulse 104 H Pulse Source Pulse Oximeter Pulse Oximetry (%) 96 Oxygen Delivery Method Room Air Intake Visit Reasons: Annual Exam Intake Note: Patient is here today for a physical. 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 Accompanied by: Self / Same As Patient Allergies lisinopril Adverse Reaction (Mild, Verified 12/19/24 11:38) Cough Medication List - Last Reconciled 12/19/24 by Irving Ham PA-C blood sugar diagnostic (FreeStyle Lite Strips) As directed empagliflozin (Jardiance) 25 mg PO DAILY lancets (FreeStyle Lancets) As directed latanoprost 0.005% 1 drp ophthalmic (eye) BEDTIME metformin 1,000 mg PO BID 90 days omeprazole 40 mg PO DAILY 90 days semaglutide (Ozempic) 1 mg (0.75 mL) subcut QWEEK 4 weeks simvastatin 5 mg PO DAILY 90 days valsartan 80 mg PO DAILY 90 days Tobacco use date assessed: 12/19/24 Dental Screening Dental Screen Date: 12/19/24 Did you have a dental visit in the last 12 months?: Yes Did you have a dental problem in the last 6 months where you did not have access to dental care?: No Was dental information given to patient?: Patient has dentist HPI Annual Exam 2 HPI0 Details Patient is a 44 y/o F here today for a routine annual physical. ? Patient has a past medical history significant for type 2 diabetes, GERD hypertension. Concern--> Patient reports menstrual irregularities and pelvic pain that have worsened over the last year. She describes monthly acute pelvic and back pain corresponding with ovulation, requiring interventions like ibuprofen for relief. Previous ultrasound evaluations have not identified any abnormalities despite a known uterine fibroid history. She uses Mirena for family planning but reports ongoing menstrual spotting and severe ovulatory pain. .. DMII:? A last visit we discussed her weight and her diabetic control. Continues on Ozempic 1 mg and has lost weight since last office visit. Blood sugars have been improved She would like to increase her dose of Ozempic to 2mg as she has felt hunger again and for better glycemic control. Does regularly see her eye doctor .. Hypertension:? Blood pressures have been stable on current dose of amlodipine and valsartan. Otherwise denies any chest pain, shortness for breath or headaches. Mammogram: Done in February 2024- BI-RADS 1 . Vaccine: UTD with COVID vaccine, UTD with Tdap and PCV, UTD with Flu vaccine. .. MORTGAGE PROTECTION SPECIALIST: see a MORTGAGE PROTECTION SPECIALIST at [facility] and has not gotten PAP in many years [facility] Medical History Vitamin D deficiency Obesity (BMI 30-39.9) Anemia Irritable bowel syndrome DMII (diabetes mellitus, type 2) Surgical History No pertinent past surgical history Family History Father No problems noted. 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 1. Little interest or pleasure in doing things: more than half the days 2. Feeling down, depressed, or hopeless: several days 3. Trouble falling or staying asleep, or sleeping too much: several days 4. Feeling tired or having little energy: several days 5. Poor appetite or overeating: nearly every day 6. Feeling bad about yourself - or that you are a failure or have let yourself or your family down: not at all 7. Trouble concentrating on things, such as reading the newspaper or watching television: not at all 8. Moving or speaking so slowly that other people could have noticed. Or the opposite - being so fidgety or restless that you have been moving around a lot more than usual: not at all 9. Thoughts that you would be better off or of hurting yourself in some way: not at all Total score: 8 35750 - PHQ-9 Billing: Yes Source: Developed by Drs. Parmjit Mathis, Elba Joseph, Víctor Delgadillo and colleagues, with an educational mckenna from [employer]. Thrive Questionnaire Date Thrive assessed: 12/19/24 I am a: Patient What is your living situation today?: I have a steady place to live Within the past 12 months, did the food you bought not last and you didn't have the money to get more?: Often true Within the past 12 months, did you worry whether your food would run out before you got money to buy more?: Never true Do you have trouble paying for medicines?: No Do you have trouble getting transportation to medical appointments?: No Do you have trouble paying your heating and electricity bill?: No Do you have trouble taking care of your child, family member or friend?: No Do you have trouble with day-to-day activities such as bathing, preparing meals, shopping, managing finances, etc.?: No Are you currently unemployed and looking for a job?: No Are you interested in more education?: No Please select the resources that you would like help with: None Currently or been in a relationship where the following occur: No concerns reported THRIVE Score: 1 AUDIT C Alcohol Use Questionnaire (AUDIT-C) 1. How often do you have a drink containing alcohol?: Monthly or less 2. How many drinks containing alcohol do you have on a typical day when you are drinking?: 1 or 2 3. How often do you have six or more drinks on one occasion?: Never Total Score: 1 GRECIA-7 AMB Questionnaire GRECIA-7 Date GRECIA - 7 assessed: 12/19/24 Feeling nervous, anxious, or on edge: 1 = Several days Not being able to stop or control worryin = Several days Worrying too much about different things: 1 = Several days Trouble relaxin = Several days Being so restless that it is hard to sit still: 0 = Not at all Becoming easily annoyed or irritable: 0 = Not at all Feeling afraid as if something awful might happen: 0 = Not at all Total GRECIA-7 score (0-4 normal; 5-9 mild; 10-14 moderate; 15-21 severe): 4 Source: Developed by Elba Banks.W. Jake, Víctor Delgadillo and colleagues, with an educational mckenna from [employer]. GRECIA-7 Assessment Billing GRECIA-7 Assessment Tool: GRECIA-7 Assessment 74192 Review of Systems Const Denies body aches, Denies chills, Denies excessive sweating, Denies fatigue, Denies fever(s) and Denies headache(s) Eyes Denies blurry vision ENT Denies dysphagia, Denies vertigo, Denies dizziness, Denies headache(s), Denies hearing loss and Denies tinnitus Card Denies chest pain, Denies chest pain with activity, Denies syncope, Denies irregular heart rhythm and Denies dyspnea Resp Denies chest congestion, Denies cough, Denies hemoptysis, Denies dyspnea and Denies wheezing GI Denies abdominal pain, Denies melena, Denies hematochezia, Denies coffee ground emesis, Denies dysphagia, Denies diarrhea, Denies nausea and Denies vomiting Denies urinary frequency, Denies dysuria, Denies urinary hesitancy and Denies urinary urgency Musc Denies arthralgias, Denies limited range of motion, Denies muscle cramps and Denies muscle weakness Skin/Breast Denies rash and Denies skin ulcer Neuro Denies Abnormal speech present, Denies confusion, Denies vertigo, Denies dizziness, Denies syncope, Denies headache(s), Denies memory loss and Denies seizure-like activity Psych Denies anxiety, Denies confusion, Denies depression, Denies memory loss, Denies panic attacks and Denies paranoia Endo Denies excessive sweating, Denies fatigue, Denies flushing, Denies polydipsia and Denies polyuria Jamey/Lymph Denies easy bleeding and Denies easy bruising Aller/Immun Denies wheezing Physical exam (Primary Care) Vital Signs: Last Vital Signs Pulse 104 H 12/19/24 11:27 BP 112/86 12/19/24 11:27 Pulse Ox 96 12/19/24 11:27 Oxygen Delivery Method Room Air 12/19/24 11:27 BMI result Body Mass Index 29.7 Tobacco/Smoking Status: Tobacco use Status Tobacco use date assessed 12/19/24 12/19/24 11:30 Patient Tobacco Use Status Never used Tobacco 12/19/24 11:28 e-Cigarette/Vaping Use Never Used 12/19/24 11:28 PHQ-9: PHQ-9 Score PHQ-9: Total score 8 12/19/24 11:39 Thrive Assessment: Date of Thrive Assessment Date Thrive assessed 12/19/24 12/19/24 11:30 Currently or been in a relationship where the following occur: No concerns reported Const General: cooperative, comfortable, no acute distress, alert and awake; No confusion Nutritional Appearance: well nourished Orientation/consciousness: oriented to person, oriented to place, patient oriented x3 and No confusion HENMT Head: Yes normocephalic Ears: external ears normal and TM's normal bilaterally General nose exam: Normal nasal mucous membranes and turbinates present Face and sinus: No sinus tenderness Mouth: Normal oral and palatal mucosa present and tongue normal Teeth and gingiva: dentition normal and gingiva normal Throat: Yes posterior oropharynx normal, Yes tonsils normal and Yes uvula midline Eyes Conjunctivae: conjunctivae normal Sclerae: sclerae normal Pupils: Equal, round and reactive pupils present EOM: EOMs intact bilaterally Direct Ophthalmoscopy: No no photophobia Neck Neck: Yes no lymphadenopathy, No tender and Yes no JVD Thyroid: Thyroid normal Carotids: no bruits Chest Chest palpation & inspection: no tenderness Resp Effort & Inspection: normal respiratory effort, no audible wheezes, not labored and no stridor Auscultation: no crackles, no rales, no rhonchi and no wheezes Cardio Jugular venous distension: no JVD Rate: regular rate, not bradycardic and not tachycardic Rhythm: regular rhythm Heart sounds: no murmurs and normal S1 and S2 Bruits: no carotid bruits Peripheral pulses: Peripheral pulses 2+ throughout GI Inspection: Yes normal to inspection, No abdominal wall ecchymosis and No visible herniation Palpation (GI): Soft to palpation, nontender, no guarding, not rigid and No hepatosplenomegaly present Auscultation: normoactive bowel sounds General: Yes no CVA tenderness Female genitals images: 2 1. SOME MILD TENDERNESS TO PALPATION OVER THE SUPRAPUBIC REGION Back/Spine/Pelvis Back: no CVA tenderness and No back tenderness Cervical Spine: cervical ROM normal Thoracic/Lumbar Spine: thoracic and lumbar spine normal to inspection, straight leg raise negative bilaterally, No thoraco-lumbar ROM limited and No lumbar spinal tenderness Skin General skin exam: no rashes or lesions noted and dry skin Lesions: no lesions Rashes: no rashes Wounds: no wounds Neuro General: oriented to person, oriented to place, patient oriented x3, CN's II-XI intact bilaterally and No confusion Cranial nerves: Yes Equal, round and reactive pupils present and Yes Normal accommodation reflex present Cognition (Neuro): normal cognition Speech: No Abnormal speech present Gait exam (Neuro): Normal gait present Motor exam (neuro): 5/5 motor strength present throughout Extrem Right upper extremity: full ROM; no cyanosis Left upper extremity: full ROM; no cyanosis Right lower extremity: no edema Left lower extremity: no edema Psych Appearance: grossly normal Mental Status: mental status grossly normal Speech and movement: Normal speech and movement present Affect: normal affect Attitude: cooperative Thought process: Normal thought process present Coding Level of Care Code Est Pt Level 4 (19502) Diagnoses Annual physical exam Z00.00 Type 2 diabetes mellitus with hyperglycemia, without long-term current use of insulin E11.65 Diabetes mellitus intermediate frame tender insulin use: without intermediate frame tender use Essential hypertension I10 Hypertension type: essential hypertension Pelvic pain R10.2 Allergic rhinitis due to animal hair and dander J30.81 Allergic rhinitis trigger: animal hair and dander Hyperlipidemia LDL goal <100 E78.5 Additional Codes GRECIA-7 Assessment Billing - GRECIA-7 Assessment Tool: GRECIA-7 Assessment 33968 ([id number]) PHQ-9 - 60604 - PHQ-9 Billing: Yes ([id number]) Assessment & Plan Assessment & Plan (1) Annual physical exam: Code(s): Z00.00 - Encounter for general adult medical examination without abnormal findings Category: Medical Plan: As per HPI (2) Type 2 diabetes mellitus with hyperglycemia: Code(s): E11.65 - Type 2 diabetes mellitus with hyperglycemia Category: Medical Qualifiers: Diabetes mellitus fdc insulin use: without fdc use Q ualified Code(s): E11.65 - Type 2 diabetes mellitus with hyperglycemia Plan: Patient's type 2 diabetes well controlled. Continues with Jardiance and Ozempic. She would like to increase her Ozempic to maximal dose to mg weekly for better control of her hunger and will wait. Goal A1c is to remain below 7.0 (3) HTN (hypertension): Code(s): I10 - Essential (primary) hypertension Category: Medical Qualifiers: Hypertension type: essential hypertension Qualified Code(s): I10 - Essential (primary) hypertension Plan: Patient's blood pressure acceptable today in office thus will continue current dose of valsartan. Goal blood pressures to remain below 140/90 (4) Pelvic pain: Code(s): R10.2 - Pelvic and perineal pain Category: Medical Plan: A transvaginal ultrasound has been ordered to evaluate uterine concerns linked to severe ovulation pain and spotting. The continuation and impacts of Mirena contraceptive will be discussed with her MORTGAGE PROTECTION SPECIALIST specialist. Pain management includes meloxicam and NSAIDs for ovulation-related discomfort, with further symptom tracking recommended for her consultatory MORTGAGE PROTECTION SPECIALIST visit. (5) Allergic rhinitis: Code(s): J30.9 - Allergic rhinitis, unspecified Category: Medical Qualifiers: Allergic rhinitis trigger: animal hair and dander Qualified Code(s): J 30.81 - Allergic rhinitis due to animal (cat) (dog) hair and dander Plan: Will supply patient with alternative nasal spray due to her reports of nasal congestion and allergies. She does have dogs at home she believes she is allergic to. (6) Hyperlipidemia LDL goal <100: Code(s): E78.5 - Hyperlipidemia, unspecified Category: Medical Plan: Will continue current dose of simvastatin 5 mg with goal LDL to remain below 100 Orders: Orders 2 Comprehensive [place]. Panel Fast 12/19/24 E11.65 - Type 2 diabetes mellitus with hyperglycemia Microalbumin, Random (w Creat) 12/19/24 I10 - Essential (primary) hypertension Hemoglobin A1c 12/19/24 E11.65 - Type 2 diabetes mellitus with hyperglycemia Lipid Panel 12/19/24 E78.5 - Hyperlipidemia, unspecified US pelvic and transvaginal 12/19/24 R10.2 - Pelvic and perineal pain Complete Blood Count no Diff 12/19/24 E11.65 - Type 2 diabetes mellitus with hyperglycemia Resp Allergy Profile Region I 12/19/24 J30.81 - Allergic rhinitis due to animal (cat) (dog) hair and dander, R05.9 - Cough, unspecified Medications: New 2 semaglutide (Ozempic) 2 mg (0.75 mL) subcut QWEEK 3 mL 3RF 4 weeks E11.65 - Type 2 diabetes mellitus with hyperglycemia meloxicam 15 mg PO DAILY 14 tabs 0RF 14 days R10.2 - Pelvic and perineal pain azelastine administer into each nostril 1 spray intranasal BID 30 mL 3RF 30 days J30.81 - Allergic rhinitis due to animal (cat) (dog) hair and dander, J30.9 - Allergic rhinitis, unspecified Refilled 2 simvastatin 5 mg PO DAILY 90 tabs 2RF 90 days E78.5 - Hyperlipidemia, unspecified empagliflozin (Jardiance) 25 mg PO DAILY 90 tabs 1RF E11.65 - Type 2 diabetes mellitus with hyperglycemia metformin 1,000 mg PO BID 180 tabs 1RF 90 days E11.9 - Type 2 diabetes mellitus without complications valsartan 80 mg PO DAILY 90 tabs 1RF 90 days I10 - Essential (primary) hypertension On Hold 2 semaglutide (Ozempic) Hold Comment: Doctor's Order 1 mg (0.75 mL) subcut QWEEK 4 weeks 3 mL 3RF E11.65 - Type 2 diabetes mellitus with hyperglycemia, E66.9 - Obesity, unspecified Patient Instructions: Goal: A1c to remain below 7.0, LDL to be below 100, blood pressure to remain below 140/90 Barriers: Adherence to physical activity and healthy eating habits
== END 2024-12-19 11:59 | disposition home or self-care (01) ==
LOC: HO.HMCH 11:08
PROVIDERS: PCP Physician Assistant; Visit Provider Physician Assistant
DX: Z00.00 Encounter for general adult medical examination without abnormal findings (principal); E11.65 Type 2 diabetes mellitus with hyperglycemia; I10 Essential (primary) hypertension; R10.2 Pelvic and perineal pain; J30.81 Allergic rhinitis due to animal (cat) (dog) hair and dander; E78.5 Hyperlipidemia, unspecified

== ENCOUNTER 2025-01-14 13:09 | Outpatient (REF) | payer OTHER, SELFPAY ==
--- NOTE | ~2025-01-14 | US_ITS ---
CLINICAL HISTORY: R10.2 - Pelvic and perineal pain US pelvis transabdominal and transvaginal Comparison: None Findings: Transabdominal scanning performed for overall anatomy. Transvaginal scanning performed for additional detail. Retroverted uterus is 7.2 cm length. An IUD is visualized. Normal myometrium. Endometrium 6.0 mm thickness. Right ovary 3.8 x 2.6 x 2.6 cm, corresponds to a volume of 13.4 mL.. Left ovary 3.6 x 2.1 x 2.1 cm, corresponds to a volume of 8.3 mL.. Normal color Doppler of both ovaries. No free fluid. IMPRESSION: 1. Unremarkable pelvic ultrasound This document has been electronically signed by: Maryann Motta MD on 01/14/2025 23:05:20
== END 2025-01-14 13:10 | disposition home or self-care (01) ==
LOC: HO.US 13:09
PROVIDERS: PCP Physician Assistant; Visit Provider Physician Assistant
DX: R10.2 Pelvic and perineal pain (principal)
CPT/HCPCS: 76830; 76856

== ENCOUNTER → 2025-01-14 13:11 | Outpatient (BNV) | payer OTHER, SELFPAY | PROVIDERS: PCP Physician Assistant; Visit Provider Student in an Organized Health Care Education/Training Program | DX: R10.2 Pelvic and perineal pain (principal) | CPT/HCPCS: 76830; 76856 ==

== ENCOUNTER 2025-03-29 12:43 | Outpatient (REF) | payer OTHER, SELFPAY | END 2025-03-29 12:44 | disposition home or self-care (01) | LOC: HO.MAMMO 12:43 | PROVIDERS: PCP Physician Assistant; Visit Provider Physician Assistant | DX: Z12.31 Encounter for screening mammogram for malignant neoplasm of breast (principal) | CPT/HCPCS: 77063; 77067 ==

== ENCOUNTER → 2025-03-29 13:00 | Outpatient (BNV) | payer OTHER, SELFPAY | PROVIDERS: PCP Physician Assistant; Visit Provider Internal Medicine | DX: Z12.31 Encounter for screening mammogram for malignant neoplasm of breast (principal) | CPT/HCPCS: 77063; 77067 ==

== ENCOUNTER 2025-04-30 07:47 | Outpatient (REF) | payer OTHER, SELFPAY ==
--- NOTE | ~2025-04-30 | US_ITS ---
EXAMINATION: US SCREENING ULTRASOUND BREAST, BILATERAL CLINICAL INFORMATION: Dense breasts on mammography. Screening ultrasound. Family history including grandmother and aunts. COMPARISON: Available prior imaging on PACS. TECHNIQUE: Ultrasound is performed using grayscale imaging and color Doppler. Imaging is performed to include the four quadrants and retroareolar region. Both breasts are imaged. FINDINGS: Right breast: There is no suspicious finding by ultrasound. There is no solid mass or focal architectural abnormality. Left breast: There is no suspicious finding by ultrasound. There is no solid mass or focal architectural abnormality. US/US breast BI complete IMPRESSION: No suspicious findings on screening breast ultrasound. ASSESSMENT: BI-RADS 1 - Negative RECOMMENDATION: 1 year F/U This patient's information was entered into a reminder system with a target due date for their next mammogram. Electronically signed by: Maxine Casas DO 04/30/2025 08:47 AM EDT
== END 2025-04-30 07:48 | disposition home or self-care (01) ==
LOC: HO.MAMMO 07:47
PROVIDERS: PCP Physician Assistant; Visit Provider Physician Assistant
DX: R92.30 Dense breasts, unspecified (principal)
CPT/HCPCS: 76641

== ENCOUNTER → 2025-04-30 08:00 | Outpatient (BNV) | payer OTHER, SELFPAY | PROVIDERS: PCP Physician Assistant; Visit Provider Internal Medicine | DX: R92.8 Other abnormal and inconclusive findings on diagnostic imaging of breast (principal) | CPT/HCPCS: 76641 ==

== ENCOUNTER 2025-06-26 10:11 | Outpatient (AMB) | payer OTHER, SELFPAY ==
--- NOTE | 2025-06-26 10:11 | A.OFFPC_ITS ---
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: Not Required per policy Accompanied by: Self / Same As Patient Allergies lisinopril Adverse Reaction (Mild, Verified 06/26/25 10:25) Cough Medication List - Last Reconciled 06/26/25 by Irving Ham PA-C azelastine 1 spray intranasal BID blood sugar diagnostic (FreeStyle Lite Strips) As directed empagliflozin (Jardiance) 25 mg PO DAILY lancets (FreeStyle Lancets) As directed latanoprost 0.005% 1 drp ophthalmic (eye) BEDTIME metformin 1,000 mg PO BID 90 days omeprazole 40 mg PO DAILY 90 days semaglutide (Ozempic) 2 mg (0.75 mL) subcut QWEEK 4 weeks simvastatin 5 mg PO DAILY 90 days valsartan 80 mg PO DAILY 90 days Tobacco use date assessed: 06/26/25 Dental Screening Dental Screen Date: 12/19/24 HPI 6 month f/u HPI Details Patient is a 44 y/o F being evaluated today via telephone only. ? Patient has a past medical history significant for type 2 diabetes, GERD hypertension. Concern--> today not feeling well and thinks she has COVID which is the reason for the to help with the appointment today . .. DMII:? Patient continues on Ozempic , Jardiance and metformin with good glycemic control Blood sugars have been improved She would like to increase her dose of Ozempic to 2mg as she has felt hunger again and for better glycemic control. Does regularly see her eye doctor .. Hypertension:? Blood pressures have been stable on current dose of amlodipine and valsartan. Otherwise denies any chest pain, shortness for breath or headaches. [facility] Medical History Vitamin D deficiency Obesity (BMI 30-39.9) Anemia Irritable bowel syndrome DMII (diabetes mellitus, type 2) Surgical History No pertinent past surgical history Family History Father No problems noted. 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 Parmjit Mathis, Elba Joseph, Víctor Delgadillo and colleagues, with an educational mckenna from [employer]. Review of Systems Const Denies headache(s) Eyes Denies loss of vision ENT Details: + DECREASED SMELL, SINUS CONGESTION Denies vertigo, Denies dizziness, Denies headache(s) and Denies sore throat Card Denies chest pain, Denies leg edema and Denies lightheadedness Resp Reports cough, Denies hemoptysis and Denies wheezing GI Denies abdominal pain, Denies melena, Denies constipation, Denies diarrhea and Denies vomiting Denies urinary frequency, Denies dysuria and Denies urinary urgency Musc Denies arthralgias, Denies joint swelling, Denies numbness and Denies tingling Neuro Denies behavioral changes, Denies vertigo, Denies dizziness, Denies headache(s), Denies loss of vision, Denies memory loss, Denies numbness and Denies tingling Psych Denies anxiety, Denies behavioral changes, Denies depression, Denies memory loss and Denies panic attacks Jamey/Lymph Denies easy bleeding and Denies easy bruising Aller/Immun Denies wheezing Physical exam (Primary Care) Tobacco/Smoking Status: Tobacco use Status Tobacco use date assessed 06/26/25 06/26/25 10:14 Patient Tobacco Use Status Never used Tobacco 06/26/25 10:14 e-Cigarette/Vaping Use Never Used 06/26/25 10:14 Thrive Assessment: Date of Thrive Assessment Date Thrive assessed 12/19/24 06/26/25 10:14 Telehealth Telehealth Telehealth Platform: Telephone Location of provider rendering services: practice address Location of patient: address on file Patient Identification confirmed using: Name, : Yes Telehealth method: voice only Patient verbally consented to treatment: Yes Patient verbally consented to billing insurance company: Yes Patient informed of any privacy concerns related to visit: Yes Minutes spent on Phone/Video with Pt.: 11 Coding Level of Care Code Tele Est Pt Level 4 (42686) Diagnoses Type 2 diabetes mellitus with hyperglycemia, without long-term current use of insulin E11.65 Diabetes mellitus care home insulin use: without care home use Essential hypertension I10 Hypertension type: essential hypertension Hyperlipidemia LDL goal <100 E78.5 Assessment & Plan Assessment & Plan (1) Type 2 diabetes mellitus with hyperglycemia: Code(s): E11.65 - Type 2 diabetes mellitus with hyperglycemia Category: Medical Qualifiers: Diabetes mellitus dedicated intermodal truck driver insulin use: without dedicated intermodal truck driver use Qualified Code(s): E11.65 - Type 2 diabetes mellitus with hyperglycemia Plan: Patient's type 2 diabetes well controlled. Continues with Jardiance and Ozempic. We had increased her Ozempic to 2 mg weekly though she reports she is only taking 1 mg weekly.. Goal A1c is to remain below 7.0 (2) HTN (hypertension): Code(s): I10 - Essential (primary) hypertension Category: Medical Qualifiers: Hypertension type: essential hypertension Qualified Code(s): I10 - Essential (primary) hypertension Plan: Patient's blood pressure acceptable today in office thus will continue current dose of valsartan. Goal blood pressures to remain below 140/90 (3) Hyperlipidemia LDL goal <100: Code(s): E78.5 - Hyperlipidemia, unspecified Category: Medical Plan: Will continue current dose of simvastatin 5 mg with goal LDL to remain below 100 Orders: Orders Lipid Panel Today E78.5 - Hyperlipidemia, unspecified Comprehensive [place]. Panel Fast Today E11.65 - Type 2 diabetes mellitus with hyperglycemia Complete Blood Count no Diff Today E11.65 - Type 2 diabetes mellitus with hyperglycemia Microalbumin, Random (w Creat) Today I10 - Essential (primary) hypertension Hemoglobin A1c Today E11.65 - Type 2 diabetes mellitus with hyperglycemia Medications: Refilled semaglutide (Ozempic) 2 mg (0.75 mL) subcut QWEEK 3 mL 3RF 4 weeks E11.65 - Type 2 diabetes mellitus with hyperglycemia
== END 2025-06-26 10:52 | disposition home or self-care (01) ==
LOC: HO.HMCH 10:11
PROVIDERS: PCP Physician Assistant; Visit Provider Physician Assistant
DX: E11.65 Type 2 diabetes mellitus with hyperglycemia (principal); I10 Essential (primary) hypertension; E78.5 Hyperlipidemia, unspecified

== ENCOUNTER 2025-07-10 12:34 | Outpatient (REF) | payer OTHER, SELFPAY ==
--- NOTE | ~2025-07-10 | US_ITS ---
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 Left kidney normal size and echotexture, 10.4 cm length. 7 x 7 x 9 mm echogenic lesion. No collecting system dilatation of either kidney. Normal color Doppler. 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 This document has been electronically signed by: Myke Rodas MD on 07/11/2025 13:35:44
== END 2025-07-10 12:35 | disposition home or self-care (01) ==
LOC: HO.US 12:34
PROVIDERS: PCP Physician Assistant; Visit Provider Nurse Practitioner Family
DX: D17.71 Benign lipomatous neoplasm of kidney (principal)
CPT/HCPCS: 76775

== ENCOUNTER → 2025-07-10 12:36 | Outpatient (BNV) | payer OTHER, SELFPAY | PROVIDERS: PCP Physician Assistant; Visit Provider Nuclear Medicine | DX: N28.9 Disorder of kidney and ureter, unspecified (principal) | CPT/HCPCS: 76775 ==

== ENCOUNTER 2025-08-06 13:11 | Outpatient (REF) | payer OTHER, SELFPAY | END 2025-08-06 13:12 | disposition home or self-care (01) | LOC: HO.LAB 13:11 | PROVIDERS: PCP Physician Assistant; Visit Provider Nurse Practitioner Family | DX: D17.71 Benign lipomatous neoplasm of kidney (principal); R31.29 Other microscopic hematuria; E11.9 Type 2 diabetes mellitus without complications; Z13.89 Encounter for screening for other disorder | CPT/HCPCS: 81003; 88112; 99212 ==

== ENCOUNTER 2025-08-06 13:11 | Outpatient (AMB) | payer OTHER, SELFPAY ==
--- NOTE | 2025-08-06 13:17 | A.OFFVIS_ITS ---
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 Required: No Allergies lisinopril Adverse Reaction (Mild, Verified 08/06/25 13:55) Cough Medication List - Last Reconciled 08/06/25 by HAI Wolf- azelastine 1 spray intranasal BID blood sugar diagnostic (FreeStyle Lite Strips) As directed empagliflozin (Jardiance) 25 mg PO DAILY lancets (FreeStyle Lancets) As directed latanoprost 0.005% 1 drp ophthalmic (eye) BEDTIME metformin 1,000 mg PO BID 90 days omeprazole 40 mg PO DAILY 90 days semaglutide (Ozempic) 2 mg (0.75 mL) subcut QWEEK 4 weeks simvastatin 5 mg PO DAILY 90 days valsartan 80 mg PO DAILY 90 days HPI Comments Details: Clementine is a pleasant 44-year-old female patient of Dr. Hma. She has a past medical history of vitamin-D deficiency, obesity, anemia, irritable bowel syndrome, and type 2 diabetes. 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 In discussion with the patient today she reports to be doing and feeling well. She denies having had any bothersome urinary issues or concerns. Most recent renal imaging results reviewed with the patient today. 07/27 bilateral kidneys are normal in size and echotexture. Stable 9 mm echogenic lesion of the left kidney likely to be an angiolipoma. No collecting system dilatation of either kidney. Normal color Doppler. Per radiology report. In office urinalysis results reviewed with the patient today. We did discuss glucosuria. However patient is on Jardiance for her diabetes. She denies urinary urgency, urinary frequency, incontinence, nocturia, hematuria, dysuria, foul smelling urine, changes to urinary stream, flank pain, fever, and or chills. She is happy with her current voiding parameters. All questions were answered. She otherwise offers no other issues or concerns at this time. PREVIOUS OFFICE NOTE: Angiomyolipoma Here for initial evaluation of incidentally detected renal mass Discussed natural history Imaging - 04/22 CT scan 6 mm left angiomyolipoma - 05/25 renal ultrasound small 9 mm left angiomyolipoma Plan for surveillance imaging in 24 months [facility] Medical History Vitamin D deficiency Obesity (BMI 30-39.9) Anemia Irritable bowel syndrome DMII (diabetes mellitus, type 2) Surgical History No pertinent past surgical history Family History Father No problems noted. Mother Amyloid disease Social History Housing: House Alcohol intake: current Alcohol intake frequency: holidays/special occasions only Patient Tobacco Use Status: Never used Tobacco e-Cigarette/Vaping Use: Never Used Second Hand Smoke Exposure: No service: No Current occupational status: employed Current occupation: [employer] Cognitive needs: No Hearing needs: No Vision needs: Yes (Pt wears glasses) Review of Systems Const All systems reviewed & are unremarkable except as noted in HPI and below Physical Exam Const General: cooperative, healthy appearing, comfortable, no acute distress, well developed, alert and awake Nutritional Appearance: overweight Orientation/consciousness: patient oriented x3 Limitations: no limitations HEENT Head: Yes normal to inspection, Yes normocephalic and Yes atraumatic Ears: hearing grossly normal bilaterally Eyes General: appearance normal, both eyes and all related structures Neck Neck: Yes normal visual inspection and Yes trachea midline Chest Chest palpation & inspection: normal inspection of the chest Resp Effort & Inspection: normal respiratory effort and able to speak in complete sentences Cardio Rate: regular rate GI Inspection: Yes normal to inspection General: Yes no CVA tenderness Back/Spine/Pelvis Back: no CVA tenderness Skin General skin exam: no rashes or lesions noted Neuro General: patient oriented x3 Extrem General: Yes normal to inspection Psych Appearance: grossly normal and well kempt Mental Status: mental status grossly normal Speech and movement: Normal speech and movement present and Clear speech present Affect: normal affect Attitude: cooperative Thought process: Normal thought process present Thought content: Normal thought content present Insight: Fair insight present (Psych) Judgement: Fair judgement present (Psych) Results AMB Urinalysis, Automated UA Leukoctes 0 Donnie/uL Last Edit by CHILO Borja on 08/06/25 14:01 UA Nitrite Negative Last Edit by CHILO Borja on 08/06/25 14:01 UA Urobilinogen 0.2 mg/dL Last Edit by CHILO Borja on 08/06/25 14:0 1 UA Protein 0 mg/dL Last Edit by CHILO Borja on 08/06/25 14:01 UA pH 5.5 Last Edit by CHILO Borja on 08/06/25 14:01 UA Blood 25 Mark/uL Last Edit by CHILO Borja on 08/06/25 14:01 UA Specific [place] 1.015 Last Edit by CHILO Borja on 08/06/25 14: 01 UA Ketone Negative Last Edit by CHILO Borja on 08/06/25 14:01 UA Bilirubin 0 mg/dL Last Edit by CHILO Borja on 08/06/25 14:01 UA Glucose 1000 mg/dL Last Edit by CHILO Borja on 08/06/25 14:01 Results Reviewed Results Reviewed: Date of Service: 07/10/25 Procedure(s): US renal BI US Renal Comparison: US/SR - US RENAL BI - 05/09/23 11:01 EDT Findings: Right kidney normal size and echotexture, 12.2 cm length. Left kidney normal size and echotexture, 10.4 cm length. 7 x 7 x 9 mm echogenic lesion. No collecting system dilatation of either kidney. Normal color Doppler. 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 Most recent renal imaging results with the patient today; as noted above. She currently denies any bothersome urinary issues or concerns. She reports be happy with current voiding parameters. We did discussed the importance of management and diabetes for improvement in urological health as well as overall health and well-being. Will continue with surveillance monitoring. Will obtain renal ultrasound in 1 year. 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 All questions were answered. Physical exam, labs, and imaging were discussed and reviewed in detail. As well as risks, benefits, and discussion of treatment c rohit. No major barriers to understanding were identified. The patient expressed understanding and agreement with the above treatment plan. The patient was made aware they should contact our office by phone for worsening of their current condition, the appearance of new symptoms, or with any questions or concerns. Compliance is encouraged with any medications and follow up testing that is ordered. It is a privilege to be allowed the opportunity to participate in? your urological care.? Again, if you have any questions or concerns If you have any questions or concerns please do not hesitate to contact me. The office is [phone]. This note is constructed using voice recognition software. While every effort has been made to ensure accuracy papeterie table assembler errors may have been included. Yours sincerely, FELICITY Wolf Coding Level of Care Code Est Pt Level 3 (29124) Complex EM visit Add On G2211 Diagnoses Angiomyolipoma of kidney D17.71
== END 2025-08-06 13:52 | disposition home or self-care (01) ==
LOC: HO.HUSH 13:12
PROVIDERS: PCP Physician Assistant; Visit Provider Nurse Practitioner Family
DX: D17.71 Benign lipomatous neoplasm of kidney (principal); Z13.9 Encounter for screening, unspecified
CPT/HCPCS: 99213